=== PATIENT | female | born 1945 | race Caucasian/White ===

== ENCOUNTER 2018-01-22 09:24 | Outpatient (CLI) | payer MEDICARE | END 2018-01-22 09:25 | disposition home or self-care (01) | LOC: BICMAMMO 09:24 | PROVIDERS: ATTEND Family Medicine | DX: Z78.0 Asymptomatic menopausal state (principal); M85.88 Other specified disorders of bone density and structure, other site; M85.859 Other specified disorders of bone density and structure, unspecified thigh | CPT/HCPCS: 77080 ==

== ENCOUNTER 2018-12-06 08:52 | Outpatient (CLI) | payer MEDICARE | END 2018-12-06 08:53 | disposition home or self-care (01) | LOC: BICMAMMO 08:52 | PROVIDERS: ATTEND Obstetrics & Gynecology | DX: Z12.31 Encounter for screening mammogram for malignant neoplasm of breast (principal); N63.10 Unspecified lump in the right breast, unspecified quadrant; N63.20 Unspecified lump in the left breast, unspecified quadrant; Z80.3 Family history of malignant neoplasm of breast | CPT/HCPCS: 77063; 77067 ==

== ENCOUNTER 2021-09-02 10:30 | Outpatient (CLI) | payer MEDICARE | END 2021-09-02 10:31 | disposition home or self-care (01) | LOC: BICMAMMO 10:30 | PROVIDERS: ATTEND Obstetrics & Gynecology | DX: Z12.31 Encounter for screening mammogram for malignant neoplasm of breast (principal) | CPT/HCPCS: 77063; 77067 ==

== ENCOUNTER 2021-09-21 14:46 | Outpatient (CLI) | payer MEDICARE ==
[~2021-09-21 14:46] MED LIST: Iopamidol-370 76% 500 ML 1 ML ONE
== END 2021-09-21 14:47 | disposition home or self-care (01) ==
LOC: BICCT 14:46
PROVIDERS: ATTEND Otolaryngology Plastic Surgery within the Head & Neck
DX: R22.1 Localized swelling, mass and lump, neck (principal); M47.812 Spondylosis without myelopathy or radiculopathy, cervical region; M48.02 Spinal stenosis, cervical region
CPT/HCPCS: 70491; 82565; Q9967

== ENCOUNTER 2022-09-23 08:09 | Outpatient (CLI) | payer OTHER | END 2022-09-23 08:10 | disposition home or self-care (01) | LOC: BICMAMMO 08:09 | PROVIDERS: ATTEND Obstetrics & Gynecology | DX: Z12.31 Encounter for screening mammogram for malignant neoplasm of breast (principal) | CPT/HCPCS: 77063; 77067 ==

== ENCOUNTER 2024-01-05 13:22 | Observation (INO) | payer MEDICARE ==
[2024-01-05 13:51] LABS: #Eosinphils 0.2 thou/uL (0.0-0.7); #Monocytes 0.4 thou/uL (0.11-0.59); %Basophils 0.6 % (0.0-1.0); %Eosinophils 2.9 % (0.0-10.0); %Lymphocytes 25.8 % (21.0-51.0); %Monocytes 5.6 % (0.0-10.0); %Neutrophils 64.8 % (42.0-75.0); Hematocrit 40.7 % (36.0-47.0); Hemoglobin 13.9 g/dL (12.0-16.0); Mean Corpuscular HGB CONC 34.2 g/dL (32.0-36.0); Mean Corpuscular Hemoglobin 32.3 pg (27.0-31.0); Mean Corpuscular Volume 94.4 fl (78.0-98.0); Mean Platelet Volume 10.4 fL (7.4-10.4); Platelet Count 203 10x3/uL (130-400); RBC Distribution Width 13.2 % (11.5-14.5); Red Blood Cell (RBC) Count 4.31 mill/uL (4.20-5.40); White Blood Cell (WBC) Count 6.2 10x3/uL (4.8-10.8)
[2024-01-05] MEDS ORDERED: Aspirin Chewable 81 MG TAB ONE (14:04)
[2024-01-05 14:13] LABS: ALT (SGPT) 14 U/L (8-55); AST (SGOT) 13 U/L (5-34); Albumin 4.1 g/dL (3.4-4.8); Alkaline Phosphatase 75 U/L (40-110); Anion Gap 12 mmol/L (10-20); BUN (Urea Nitrogen) 14 mg/dL (9.8-20.1); Bilirubin, Total 0.5 mg/dL (0.2-1.2); Calc. Creatinine Clearance 0 mL/min (70-130); Carbon Dioxide 26 mmol/L (23-31); Chloride 105 mmol/L (98-107); Estimated GFR 83; Globulin 2.9 g/dL (2.4-3.5); Glucose 97 mg/dL (83-110); Potassium 3.8 mmol/L (3.5-5.1); Sodium 139 mmol/L (136-145)
[2024-01-05 14:18] LABS: Troponin I 0.012 ng/mL (< 0.028)
[2024-01-05] MEDS ORDERED: Senokot S 8.6-50 MG TAB PO PRN (16:44)
[2024-01-05] MEDS ORDERED: Calcium Carbonate 500 MG ChewTAB PO PRN (16:44)
[2024-01-05] MEDS ORDERED: Acetaminophen 325 MG TAB PO PRN (16:44)
[2024-01-05] MEDS ORDERED: Ondansetron PF 4 MG/2 ML Vial IVP PRN (16:44)
[2024-01-05 17:23] LABS: Troponin I 0.021 ng/mL (< 0.028)
[2024-01-05 20:18] VITALS: BMI 22.2
[2024-01-05 20:23] LABS: Troponin I 0.023 ng/mL (< 0.028)
[2024-01-05] MEDS: Lisinopril 10 MG TAB PO SCH (21:33)
[2024-01-06 04:52] VITALS: TEMP 98.1
[2024-01-06 04:54] LABS: #Eosinphils 0.3 thou/uL (0.0-0.7); #Monocytes 0.4 thou/uL (0.11-0.59); #Neutrophils 3.2 thou/uL (1.40-6.50); %Basophils 0.5 % (0.0-1.0); %Eosinophils 5.7 % (0.0-10.0); %Lymphocytes 32.6 % (21.0-51.0); %Monocytes 6.9 % (0.0-10.0); %Neutrophils 54.1 % (42.0-75.0); Hematocrit 38.1 % (36.0-47.0); Hemoglobin 12.9 g/dL (12.0-16.0); Mean Corpuscular HGB CONC 33.9 g/dL (32.0-36.0); Mean Corpuscular Hemoglobin 32.5 pg (27.0-31.0); Mean Platelet Volume 10.7 fL (7.4-10.4); Platelet Count 206 10x3/uL (130-400); RBC Distribution Width 13.2 % (11.5-14.5); Red Blood Cell (RBC) Count 3.97 mill/uL (4.20-5.40)
[2024-01-06 05:16] LABS: Hemoglobin A1c 5.7 % (4.0-6.0)
[2024-01-06 05:17] LABS: ALT (SGPT) 10 U/L (8-55); AST (SGOT) 13 U/L (5-34); Albumin 3.5 g/dL (3.4-4.8); Alkaline Phosphatase 65 U/L (40-110); Anion Gap 12 mmol/L (10-20); BUN (Urea Nitrogen) 20 mg/dL (9.8-20.1); Bilirubin, Total 0.4 mg/dL (0.2-1.2); Calc. Creatinine Clearance 51 mL/min (70-130); Calcium 8.5 mg/dL (7.8-10.44); Carbon Dioxide 27 mmol/L (23-31); Cardiac Risk 3.1 (Less than 4.5); Chloride 107 mmol/L (98-107); Cholesterol 177 mg/dl (< 200 Desired); Estimated GFR 83; Globulin 2.6 g/dL (2.4-3.5); Glucose 99 mg/dL (83-110); HDL Cholesterol 58 mg/dL (>60 Neg Risk); LDL Cholesterol, Calculated 103 mg/dL; Potassium 3.6 mmol/L (3.5-5.1); Protein, Total 6.1 g/dL (5.8-8.1); Sodium 142 mmol/L (136-145); Triglycerides 80 mg/dL (Less than 150)
[2024-01-06] MEDS: Multivit, Therapeutic 1 TAB PO SCH (08:20)
[2024-01-06] MEDS: Enoxaparin 40 MG (0.4 mL) SYRINGE SC SCH (08:20)
[2024-01-06] MEDS: Aspirin Chewable 81 MG TAB PO SCH (08:20)
[2024-01-06] MEDS ORDERED: Enoxaparin 40 MG (0.4 mL) SYRINGE SC SCH (09:00)
[2024-01-06 11:25] VITALS: BP 113/58
[2024-01-06] MEDS ORDERED: Atorvastatin Calcium 10 MG TAB PO SCH (21:00)
== END 2024-01-06 11:53 | disposition home or self-care (01) ==
LOC: ERS 13:22 → SUATTDRO 13:22 → 2SW 16:24
PROVIDERS: ADMIT Internal Medicine; ATTEND Internal Medicine
DX: R07.9 Chest pain, unspecified (principal); I10 Essential (primary) hypertension; F41.9 Anxiety disorder, unspecified; F32.A Depression, unspecified; F17.210 Nicotine dependence, cigarettes, uncomplicated; Z79.82 Long term (current) use of aspirin
CPT/HCPCS: 71045; 80053 ×2; 80061; 83036; 84484 ×2; 85025 ×2; 93005; 94760; 96372; 99285; G0378 ×3; 36415; J1650

== ENCOUNTER 2024-01-24 13:27 | Outpatient (CLI) | payer MEDICARE | END 2024-01-24 13:28 | disposition home or self-care (01) | LOC: BICMAMMO 13:27 | PROVIDERS: ATTEND Obstetrics & Gynecology | DX: Z12.31 Encounter for screening mammogram for malignant neoplasm of breast (principal); Z98.890 Other specified postprocedural states | CPT/HCPCS: 77063; 77067 ==

== ENCOUNTER 2024-07-10 16:01 | Outpatient (CLI) | payer MEDICARE | END 2024-07-10 16:02 | disposition home or self-care (01) | LOC: BICCT 16:01 | PROVIDERS: ATTEND Family Medicine | DX: Z12.2 Encounter for screening for malignant neoplasm of respiratory organs (principal); F17.210 Nicotine dependence, cigarettes, uncomplicated | CPT/HCPCS: 71271 ==